=== PATIENT | female | born 1950 | race American Indian/Alaskan Native ===

== ENCOUNTER 2018-10-26 14:09 | Emergency (ER) | payer MEDICARE, OTHER ==
[2018-10-26 14:19] VITALS: BP 134/76
--- NOTE | 2018-10-26 14:22 | Event Note ---
ED Screening Note Date of service: 10/26/18 Time: 14:18 ED Screening Note: 68 y o male with a PMH f back pain presents with acute on chronic back pain x 1 week no injuries/fall This initial assessment/diagnostic orders/clinical plan/treatment(s) is/are subject to change based on patients health status, clinical progression and re- assessment by fellow clinical providers in the ED. Further treatment and workup at subsequent clinical providers discretion. Patient/guardian urged not to elope from the ED as their condition may be serious if not clinically assessed and managed. Initial orders include: ua
[2018-10-26 15:03] LABS: Bilirubin,Urine NEG (Negative); Blood,Urine NEG (Negative); Color,Urine Yellow (Yellow); Mucus,Urine FEW /HPF; Protein,Urine <15 mg/dL mg/dL (Negative); Urobilinogen,Urine < 2.0 mg/dL (<2.0)
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
== END 2018-10-26 16:49 | disposition home or self-care (01) ==
LOC: ED 14:09
DX: B37.2 Candidiasis of skin and nail (principal); M54.9 Dorsalgia, unspecified; N39.0 Urinary tract infection, site not specified
CPT/HCPCS: 81001; 87086